=== PATIENT | female | born 1995 | race Caucasian/White ===

== ENCOUNTER 2019-11-17 16:56 | Emergency (ER) | payer OTHER ==
[~2019-11-17] VITALS: Ht 157.5 cm; Wt 77.1 kg
--- NOTE | 2019-11-17 17:15 | NUR ---
BIB [facility] 59 AND [employer]ERS, PANIC ATTACK/HYPER-VENTILATING IN CORRECTION. PT AAOX4, VSS. RR EVEN & UNALBORED. CALM & COOPERATIVE, NAD NOTED AT THIS TIME. PT SEEN & EVAL'D BY DR. MEAD. WILL CONT TO MONITOR. [employer]ERS @ BS.
[2019-11-17] MEDS ORDERED: hydrOXYzine PAMOATE 25 MG CAPSULE PO ONE (17:30)
--- NOTE | 2019-11-17 18:14 | NUR ---
Patient discharged to [facility] in stable condition. Pt amb assisted by [employer] officers upon leaving ED.
[2019-11-17 18:16] VITALS: BP 119/74
== END 2019-11-17 18:17 ==
LOC: ER 16:56
DX: F41.9 Anxiety disorder, unspecified (principal); R94.31 Abnormal electrocardiogram [ECG] [EKG]; Z02.89 Encounter for other administrative examinations
CPT/HCPCS: 93005; 99283; Q0177 ×2